=== PATIENT | female | born 1940 | race Caucasian/White ===

== ENCOUNTER 2024-02-29 12:39 | Inpatient (IN) | payer MEDICARE, OTHER ==
[~2024-02-29] VITALS: Ht 170.2 cm; Wt 63.0 kg
[2024-02-29 13:06] LABS: Basophils # (auto) 0 10 ^3/uL (0-0.2); Basophils % (auto) 0.6 % (0.0-2.0); Mean Corpuscular Volume 92.4 fL (80.0-100.0); Nucleated Red Blood Cells % 0.1 %
[2024-02-29 13:08] LABS: Eosinophils # (auto) 0 10 ^3/uL (0-0.8); Eosinophils % (auto) 0.5 % (0.0-7.0); Hematocrit 17.4 % (36.0-46.0); Mean Corpuscular Hgb Conc. 32.4 g/dL (32.0-36.0); Monocytes # (auto) 0.5 10 ^3/uL (0-1.3); Monocytes % (auto) 6.6 % (0.0-12.0); Neutrophils # (auto) 6.4 10 ^3/uL (1.6-8.6); Neutrophils % (auto) 80.3 % (37.0-80.0); Platelet Count (auto) 209 10^3/uL (140-450); Red Blood Cells 1.88 10^6/uL (4.0-5.20); Red Cell Distribution Width 17.1 % (11.8-14.3)
[2024-02-29 13:11] LABS: Hemoglobin 5.6 g/dL (12.2-16.2)
[2024-02-29 13:14] LABS: Chloride 108 mmol/L (98-107); Potassium 3.9 mmol/L (3.5-5.1); Sodium 142 mmol/L (136-145)
[2024-02-29 13:15] LABS: Anion Gap 10 (5-15); Calcium 9.3 mg/dL (8.7-10.4); Carbon Dioxide 24 mmol/L (20-31)
[2024-02-29 13:20] LABS: BUN/Creatinine Ratio 14.3 (10.0-20.0); Blood Urea Nitrogen 13 mg/dL (9-23); Glucose 143 mg/dL (74-106)
[2024-02-29 13:21] LABS: Magnesium 1.8 mg/dL (1.6-2.6)
[2024-02-29] MEDS: SODIUM CHLORIDE 0.9% 500 ML IV ONE (13:33)
[2024-02-29 13:38] VITALS: PULSE 66; RESP 17; O2SAT 98
[2024-02-29 13:50] LABS: Urine Bacteria None Seen /hpf (None Seen)
[2024-02-29 13:58] LABS: Urine Blood Negative /uL (Negative); Urine Clarity Clear (Clear); Urine Color Light-Yellow (Yellow); Urine Protein, UAD Negative (Negative); Urine Specific Gravity 1.008 (1.001-1.035); Urine Urobilinogen Normal (Negative); Urine WBC <1 /hpf (0 - 5); Urine pH 7.5 (5.0-9.0)
[2024-02-29 15:30] VITALS: BP 162/52; PULSE 67; RESP 13; TEMP 97.4
[2024-02-29 15:45] VITALS: BP 175/63; PULSE 66; RESP 17; TEMP 97.1
[2024-02-29] MEDS: IOHEXOL 300 MG/ML 100ML BOTTLE IJ ONE (17:31)
[2024-02-29] MEDS: PANTOPRAZOLE 40 MG/10 ML VIAL INJ IV SCH (18:09)
[2024-02-29 19:45] VITALS: BP 140/89; PULSE 60; RESP 17; TEMP 98
[2024-02-29 19:50] VITALS: O2SAT 98
[2024-02-29 20:49] LABS: Basophils # (auto) 0 10 ^3/uL (0-0.2); Eosinophils # (auto) 0 10 ^3/uL (0-0.8); Hematocrit 22.8 % (36.0-46.0); Hemoglobin 7.5 g/dL (12.2-16.2); Monocytes # (auto) 0.7 10 ^3/uL (0-1.3); Nucleated Red Blood Cells % 0.5 %
[2024-02-29 20:51] LABS: Basophils % (auto) 0.4 % (0.0-2.0); Eosinophils % (auto) 0.5 % (0.0-7.0); Lymphocytes # (auto) 0.9 10 ^3/uL (0.4-5.4); Lymphocytes % (auto) 11.8 % (10.0-50.0); Mean Corpuscular Hemoglobin 29.9 pg (28.0-32.0); Mean Corpuscular Hgb Conc. 32.9 g/dL (32.0-36.0); Mean Corpuscular Volume 90.7 fL (80.0-100.0); Monocytes % (auto) 9.8 % (0.0-12.0); Neutrophils # (auto) 5.9 10 ^3/uL (1.6-8.6); Neutrophils % (auto) 77.5 % (37.0-80.0); Platelet Count (auto) 172 10^3/uL (140-450); Red Blood Cells 2.52 10^6/uL (4.0-5.20); Red Cell Distribution Width 16.7 % (11.8-14.3); White Blood Cell 7.6 10^3/uL (4.4-10.8)
[2024-02-29] MEDS: SODIUM CHLOR 0.9% PF (SALINE LOCK) 10ML VIAL/SYR IV SCH (21:45)
[2024-02-29] MEDS: hydrALAZINE HCL 20 MG/ML VL IV ONE (22:06)
[2024-02-29] MEDS: ONDANSETRON HCL 4 MG/2 ML VIAL IV PRN (22:13)
[2024-02-29] MEDS: MORPHINE SULFATE INJ 2 MG/ml SYRG IV PRN (22:14)
[2024-02-29] MEDS: HYDROcodone-ACET 5/325MG TAB PO PRN (23:28)
[2024-02-29] MEDS: ACETAMINOPHEN 325 MG TAB PO PRN (23:29)
[2024-02-29 23:41] LABS: Basophils # (auto) 0 10 ^3/uL (0-0.2); Basophils % (auto) 0.3 % (0.0-2.0); Eosinophils # (auto) 0.1 10 ^3/uL (0-0.8); Eosinophils % (auto) 0.7 % (0.0-7.0); Hemoglobin 7.6 g/dL (12.2-16.2); Lymphocytes # (auto) 1.4 10 ^3/uL (0.4-5.4); Lymphocytes % (auto) 14.2 % (10.0-50.0); Mean Corpuscular Hemoglobin 29.3 pg (28.0-32.0); Mean Corpuscular Hgb Conc. 31.6 g/dL (32.0-36.0); Mean Corpuscular Volume 92.8 fL (80.0-100.0); Monocytes % (auto) 10.5 % (0.0-12.0); Neutrophils # (auto) 7.2 10 ^3/uL (1.6-8.6); Neutrophils % (auto) 74.3 % (37.0-80.0); Nucleated Red Blood Cells % 0.2 %; Platelet Count (auto) 181 10^3/uL (140-450); Red Blood Cells 2.59 10^6/uL (4.0-5.20); Red Cell Distribution Width 17.6 % (11.8-14.3); White Blood Cell 9.6 10^3/uL (4.4-10.8)
[2024-03-01] MEDS: MAGNESIUM SULFATE 1GM/100ML 100 ML IV SCH (01:59)
[2024-03-01 05:31] LABS: Basophils # (auto) 0 10 ^3/uL (0-0.2); Basophils % (auto) 0.3 % (0.0-2.0); Eosinophils # (auto) 0.1 10 ^3/uL (0-0.8); Hematocrit 23.6 % (36.0-46.0); Hemoglobin 7.7 g/dL (12.2-16.2); Lymphocytes # (auto) 1.3 10 ^3/uL (0.4-5.4); Lymphocytes % (auto) 14.3 % (10.0-50.0); Mean Corpuscular Hemoglobin 29.8 pg (28.0-32.0); Mean Corpuscular Hgb Conc. 32.4 g/dL (32.0-36.0); Mean Corpuscular Volume 91.9 fL (80.0-100.0); Monocytes # (auto) 1.1 10 ^3/uL (0-1.3); Neutrophils # (auto) 6.5 10 ^3/uL (1.6-8.6); Neutrophils % (auto) 72.4 % (37.0-80.0); Nucleated Red Blood Cells % 0.5 %; Platelet Count (auto) 172 10^3/uL (140-450); Red Blood Cells 2.57 10^6/uL (4.0-5.20); Red Cell Distribution Width 17.1 % (11.8-14.3); White Blood Cell 8.9 10^3/uL (4.4-10.8)
[2024-03-01] MEDS: cloNIDine HCL 0.1 MG TAB PO ONE (05:39)
[2024-03-01 05:50] LABS: Alanine Aminotransferase 22 U/L (7-40); Albumin 4.2 g/dL (3.2-4.8); Alkaline Phosphatase 64 U/L (46-116); Anion Gap 13 (5-15); Aspartate Aminotransferase 39 U/L (13-40); BUN/Creatinine Ratio 6.7 (10.0-20.0); Blood Urea Nitrogen 5 mg/dL (9-23); Calcium 9.1 mg/dL (8.7-10.4); Carbon Dioxide 20 mmol/L (20-31); Chloride 107 mmol/L (98-107); Glucose 115 mg/dL (74-106); Potassium 2.8 mmol/L (3.5-5.1); Sodium 140 mmol/L (136-145)
[2024-03-01 05:51] LABS: Bilirubin, Total 1.5 mg/dL (0.2-1.0); Total Protein 6.7 g/dL (5.7-8.2)
[2024-03-01 11:50] LABS: Basophils # (auto) 0 10 ^3/uL (0-0.2); Eosinophils # (auto) 0.1 10 ^3/uL (0-0.8); Hematocrit 22.6 % (36.0-46.0); Hemoglobin 7.5 g/dL (12.2-16.2); Red Blood Cells 2.52 10^6/uL (4.0-5.20)
[2024-03-01 11:51] LABS: Basophils % (auto) 0.5 % (0.0-2.0); Eosinophils % (auto) 0.8 % (0.0-7.0); Lymphocytes # (auto) 0.7 10 ^3/uL (0.4-5.4); Lymphocytes % (auto) 9.3 % (10.0-50.0); Mean Corpuscular Hemoglobin 29.7 pg (28.0-32.0); Mean Corpuscular Hgb Conc. 33.2 g/dL (32.0-36.0); Mean Corpuscular Volume 89.6 fL (80.0-100.0); Monocytes # (auto) 0.7 10 ^3/uL (0-1.3); Monocytes % (auto) 8.3 % (0.0-12.0); Neutrophils # (auto) 6.5 10 ^3/uL (1.6-8.6); Neutrophils % (auto) 81.1 % (37.0-80.0); Nucleated Red Blood Cells % 0.6 %; Platelet Count (auto) 190 10^3/uL (140-450); Red Cell Distribution Width 17.2 % (11.8-14.3)
[2024-03-01] MEDS ORDERED: MORPHINE SULFATE INJ 2 MG/ml SYRG IV PRN (13:45)
[2024-03-01] MEDS ORDERED: APIX5TAB PO (17:57)
[2024-03-01] MEDS ORDERED: LOSA-534 PO (17:57)
[2024-03-01] MEDS ORDERED: OXYB5TAB14 PO (17:57)
[2024-03-01] MEDS ORDERED: METO-158 PO (17:57)
[2024-03-01] MEDS ORDERED: AMLO1TAB22 PO (17:57)
[2024-03-01] MEDS ORDERED: ROSU5TAB5 PO (17:57)
[2024-03-01] MEDS ORDERED: BACL5TAB2 PO (17:57)
[2024-03-01] MEDS ORDERED: GABA-1308 PO (17:57)
[2024-03-01] MEDS ORDERED: DULO60CA41 PO (17:57)
[2024-03-01] MEDS ORDERED: HYDR1TAB97 PO (17:57)
[2024-03-01] MEDS ORDERED: AMIO200T33 PO (17:57)
[2024-03-01 19:15] VITALS: RESP 14; O2SAT 95
[2024-03-01] MEDS: POTASSIUM CHL 20 Meq TABLET PO ONE (19:47)
[2024-03-01] MEDS: POTASSIUM CHLORIDE 20 MEQ, LIDOCAINE 1% (LOCAL ANESTH.) 2 ML in SODIUM CHL 0.9% 100 ML IV ONE (19:55)
[2024-03-01] MEDS: DIGOXIN (250MCG/ML) 2 ML AMPULE IV ONE (20:20)
[2024-03-01] MEDS: MORPHINE SULFATE INJ 2 MG/ml SYRG IV PRN (20:38)
[2024-03-01 21:00] VITALS: BP 103/42; PULSE 98; RESP 18; TEMP 97.9; O2SAT 97
[2024-03-01] MEDS ORDERED: METOPROLOL SUCCINATE XL 50 MG TAB PO SCH (22:00)
[2024-03-01 22:31] VITALS: BP 161/69; PULSE 76; PULSE 79; RESP 18; RESP 79; TEMP 98.6; O2SAT 99
[2024-03-01] MEDS: MAGNESIUM OXIDE 400 MG TAB PO SCH (23:09)
[2024-03-01] MEDS: METOPROLOL TARTRATE 25 MG TAB PO SCH (23:10)
[2024-03-01] MEDS ORDERED: MELA3TAB27 PO (23:30)
[2024-03-02] VITALS (8 sets, daily range): BP systolic 139–161; BP diastolic 54–75; PULSE 57–78; RESP 16–19; TEMP 97.9–99; O2SAT 91–98
[2024-03-02 07:38] LABS: Alanine Aminotransferase 21 U/L (7-40); Albumin 3.9 g/dL (3.2-4.8); Alkaline Phosphatase 61 U/L (46-116); Anion Gap 9 (5-15); Aspartate Aminotransferase 37 U/L (13-40); Bilirubin, Total 0.9 mg/dL (0.2-1.0); Calcium 9.3 mg/dL (8.7-10.4); Carbon Dioxide 23 mmol/L (20-31); Chloride 108 mmol/L (98-107); Glucose 135 mg/dL (74-106); Potassium 3.6 mmol/L (3.5-5.1); Sodium 140 mmol/L (136-145); Total Protein 6.3 g/dL (5.7-8.2)
[2024-03-02 07:46] LABS: BUN/Creatinine Ratio 7.7 (10.0-20.0); Blood Urea Nitrogen 6 mg/dL (9-23)
[2024-03-02] MEDS: DOCUSATE SOD 100 MG CAP PO PRN (09:23)
[2024-03-03] VITALS (8 sets, daily range): BP systolic 131–163; BP diastolic 41–78; PULSE 60–78; RESP 16–20; TEMP 98–98.6; O2SAT 93–97
[2024-03-03] MEDS: NITROGLYCERIN 0.4 MG SL TAB SL PRN (00:10)
[2024-03-03] MEDS: hydrALAZINE HCL 20 MG/ML VL IV ONE (01:45)
[2024-03-03 07:22] LABS: Basophils # (auto) 0 10 ^3/uL (0-0.2); Eosinophils # (auto) 0.2 10 ^3/uL (0-0.8); Nucleated Red Blood Cells % 0.1 %
[2024-03-03 07:26] LABS: Basophils % (auto) 0.2 % (0.0-2.0); Eosinophils % (auto) 2.1 % (0.0-7.0); Hematocrit 23.6 % (36.0-46.0); Lymphocytes # (auto) 0.8 10 ^3/uL (0.4-5.4); Lymphocytes % (auto) 10.2 % (10.0-50.0); Mean Corpuscular Hemoglobin 30.1 pg (28.0-32.0); Mean Corpuscular Hgb Conc. 33.7 g/dL (32.0-36.0); Mean Corpuscular Volume 89.2 fL (80.0-100.0); Monocytes # (auto) 0.8 10 ^3/uL (0-1.3); Monocytes % (auto) 9.3 % (0.0-12.0); Neutrophils # (auto) 6.5 10 ^3/uL (1.6-8.6); Neutrophils % (auto) 78.2 % (37.0-80.0); Platelet Count (auto) 224 10^3/uL (140-450); Red Blood Cells 2.64 10^6/uL (4.0-5.20); Red Cell Distribution Width 16.7 % (11.8-14.3); White Blood Cell 8.3 10^3/uL (4.4-10.8)
[2024-03-03 07:27] LABS: INR 1.09 (0.9-1.15); Partial Thromboplastin Time 29.3 SEC (24.5-34.5); Prothrombin Time 11.5 sec (9.3-11.8)
[2024-03-03 07:42] LABS: Alanine Aminotransferase 21 U/L (7-40); Alkaline Phosphatase 62 U/L (46-116); Anion Gap 8 (5-15); Blood Urea Nitrogen 6 mg/dL (9-23); Calcium 9.6 mg/dL (8.7-10.4); Carbon Dioxide 25 mmol/L (20-31); Chloride 107 mmol/L (98-107); Glucose 133 mg/dL (74-106); Potassium 3.3 mmol/L (3.5-5.1); Sodium 140 mmol/L (136-145)
[2024-03-03 07:43] LABS: Aspartate Aminotransferase 29 U/L (13-40); Bilirubin, Total 0.9 mg/dL (0.2-1.0); Total Protein 6.5 g/dL (5.7-8.2)
[2024-03-03] MEDS: HYDROcodone-ACET 10/325MG TAB PO PRN (14:56)
[2024-03-04] VITALS (9 sets, daily range): BP systolic 121–179; BP diastolic 51–73; PULSE 61–126; RESP 14–18; TEMP 97.7–98.8; O2SAT 93–100
[2024-03-04] MEDS: hydrALAZINE HCL 20 MG/ML VL IV PRN (02:33)
[2024-03-04 05:15] LABS: Basophils # (auto) 0 10 ^3/uL (0-0.2); Eosinophils # (auto) 0.3 10 ^3/uL (0-0.8); Hemoglobin 7.6 g/dL (12.2-16.2); Monocytes # (auto) 0.9 10 ^3/uL (0-1.3)
[2024-03-04 05:18] LABS: Basophils % (auto) 0.6 % (0.0-2.0); Eosinophils % (auto) 3.6 % (0.0-7.0); Hematocrit 23.2 % (36.0-46.0); Lymphocytes # (auto) 1.2 10 ^3/uL (0.4-5.4); Lymphocytes % (auto) 15.3 % (10.0-50.0); Mean Corpuscular Hemoglobin 29.7 pg (28.0-32.0); Mean Corpuscular Hgb Conc. 32.9 g/dL (32.0-36.0); Monocytes % (auto) 11.9 % (0.0-12.0); Neutrophils # (auto) 5.3 10 ^3/uL (1.6-8.6); Neutrophils % (auto) 68.6 % (37.0-80.0); Nucleated Red Blood Cells % 0.2 %; Platelet Count (auto) 242 10^3/uL (140-450); Red Blood Cells 2.57 10^6/uL (4.0-5.20); Red Cell Distribution Width 16.5 % (11.8-14.3); White Blood Cell 7.8 10^3/uL (4.4-10.8)
[2024-03-04 05:34] LABS: Alanine Aminotransferase 22 U/L (7-40); Alkaline Phosphatase 62 U/L (46-116); Anion Gap 9 (5-15); Blood Urea Nitrogen 6 mg/dL (9-23); Calcium 9.4 mg/dL (8.7-10.4); Carbon Dioxide 25 mmol/L (20-31); Chloride 106 mmol/L (98-107); Glucose 143 mg/dL (74-106); Potassium 3.2 mmol/L (3.5-5.1); Sodium 140 mmol/L (136-145)
[2024-03-04 05:35] LABS: Albumin 3.9 g/dL (3.2-4.8); Aspartate Aminotransferase 24 U/L (13-40); Bilirubin, Total 0.7 mg/dL (0.2-1.0); Total Protein 6.5 g/dL (5.7-8.2)
[2024-03-04] MEDS ORDERED: MIDAZOLAM HCL 2MG/2ML 2ml VIAL (1mg/ml) ONE (12:03)
[2024-03-04] MEDS ORDERED: KETAMINE 50mg/ML 1ml syringe ONE (12:03)
[2024-03-04] MEDS ORDERED: ONDANSETRON HCL 4 MG/2 ML VIAL ONE (12:04)
[2024-03-04] MEDS ORDERED: PROPOFOL 10 MG/ML 20 ML IV ONE (12:04)
[2024-03-04] MEDS ORDERED: GLYCOPYRROLATE 0.2 MG/ML 1ML VIAL ONE (12:04)
[2024-03-04] MEDS ORDERED: fentaNYL CITRATE 100 MCG/2 ML VL ONE (12:19)
[2024-03-04] MEDS: MORPHINE SULFATE INJ 2 MG/ml SYRG IV PRN (13:06)
[2024-03-04] MEDS: fentaNYL CITRATE 100 MCG/2 ML VL IV ONE (13:16)
[2024-03-04] MEDS ORDERED: EPINEPHrine HCL 1 MG/1 ML AMP ONE (13:43)
[2024-03-04] MEDS ORDERED: LIDOCAINE 1% (LOCAL ANESTH.) PF 5ml SDV ONE (13:44)
[2024-03-04] MEDS: POTASSIUM CHL 20 Meq TABLET PO ONE (14:39)
[2024-03-04] MEDS: BUPIVACAINE 0.25% INJ 50ML VIAL ONE ×2 (17:04→17:06)
[2024-03-04] MEDS: ceFAZolin 2 GM/D5W100ml 100 ML IV ONE (17:04)
[2024-03-04] MEDS: ONDANSETRON HCL 4 MG/2 ML VIAL IV ONE (17:04)
[2024-03-04] MEDS: HEPARIN SODIUM (PORCINE) 5000 UNITS/ML 1ML VIAL ONE (17:04)
[2024-03-04] MEDS: MORPHINE SULFATE INJ 2 MG/ml SYRG ONE (17:05)
[2024-03-04] MEDS: fentaNYL CITRATE 100 MCG/2 ML VL ONE (17:05)
[2024-03-04] MEDS: BUPIVACAINE HCL 50 ML ONE (17:06)
[2024-03-04] MEDS: DexAMETHasone SOD PHOS 4 MG/1ML SDV INJ ONE (17:06)
[2024-03-05] VITALS (8 sets, daily range): BP systolic 136–179; BP diastolic 42–67; PULSE 61–69; RESP 16–18; TEMP 97.9–98.6; O2SAT 0–98
[2024-03-05 06:46] LABS: Alanine Aminotransferase 18 U/L (7-40); Alkaline Phosphatase 61 U/L (46-116); Anion Gap 4 (5-15); BUN/Creatinine Ratio 12.3 (10.0-20.0); Blood Urea Nitrogen 10 mg/dL (9-23); Calcium 9.6 mg/dL (8.7-10.4); Carbon Dioxide 24 mmol/L (20-31); Chloride 108 mmol/L (98-107); Glucose 154 mg/dL (74-106); Potassium 4.6 mmol/L (3.5-5.1); Sodium 136 mmol/L (136-145)
[2024-03-05 06:47] LABS: Albumin 4.2 g/dL (3.2-4.8); Aspartate Aminotransferase 17 U/L (13-40); Basophils # (auto) 0 10 ^3/uL (0-0.2); Basophils % (auto) 0.1 % (0.0-2.0); Eosinophils # (auto) 0 10 ^3/uL (0-0.8); Lymphocytes # (auto) 0.5 10 ^3/uL (0.4-5.4); Monocytes # (auto) 0.4 10 ^3/uL (0-1.3)
[2024-03-05 06:48] LABS: Bilirubin, Total 0.6 mg/dL (0.2-1.0); Total Protein 6.7 g/dL (5.7-8.2)
[2024-03-05 06:51] LABS: Hematocrit 23.7 % (36.0-46.0); Hemoglobin 7.8 g/dL (12.2-16.2); Mean Corpuscular Hemoglobin 29.7 pg (28.0-32.0); Monocytes % (auto) 5.2 % (0.0-12.0); Neutrophils % (auto) 88.7 % (37.0-80.0); Nucleated Red Blood Cells % 0.2 %; Platelet Count (auto) 281 10^3/uL (140-450); Red Blood Cells 2.64 10^6/uL (4.0-5.20); Red Cell Distribution Width 17.4 % (11.8-14.3); White Blood Cell 7.9 10^3/uL (4.4-10.8)
[2024-03-06 05:00] VITALS: BP 163/57; PULSE 65; RESP 17; TEMP 97.8; O2SAT 96
[2024-03-06 07:00] LABS: Basophils # (auto) 0 10 ^3/uL (0-0.2); Eosinophils # (auto) 0.1 10 ^3/uL (0-0.8); Lymphocytes # (auto) 1.4 10 ^3/uL (0.4-5.4); Monocytes # (auto) 0.6 10 ^3/uL (0-1.3); Neutrophils # (auto) 6.8 10 ^3/uL (1.6-8.6); Nucleated Red Blood Cells % 0.3 %
[2024-03-06 07:03] LABS: Basophils % (auto) 0.2 % (0.0-2.0); Eosinophils % (auto) 1.4 % (0.0-7.0); Hematocrit 26.1 % (36.0-46.0); Hemoglobin 8.5 g/dL (12.2-16.2); Lymphocytes % (auto) 15.4 % (10.0-50.0); Mean Corpuscular Hemoglobin 29.6 pg (28.0-32.0); Mean Corpuscular Hgb Conc. 32.3 g/dL (32.0-36.0); Mean Corpuscular Volume 91.6 fL (80.0-100.0); Monocytes % (auto) 6.3 % (0.0-12.0); Neutrophils % (auto) 76.7 % (37.0-80.0); Platelet Count (auto) 292 10^3/uL (140-450); Red Blood Cells 2.85 10^6/uL (4.0-5.20); Red Cell Distribution Width 17.7 % (11.8-14.3); White Blood Cell 8.9 10^3/uL (4.4-10.8)
[2024-03-06 08:00] VITALS: PULSE 129
[2024-03-06 09:00] VITALS: BP 127/66; PULSE 108; RESP 16; TEMP 97.7; O2SAT 94
[2024-03-06 11:22] LABS: Alanine Aminotransferase 18 U/L (7-40); Alkaline Phosphatase 63 U/L (46-116); Anion Gap 7 (5-15); Aspartate Aminotransferase 22 U/L (13-40); BUN/Creatinine Ratio 11.3 (10.0-20.0); Blood Urea Nitrogen 8 mg/dL (9-23); Calcium 9.5 mg/dL (8.7-10.4); Carbon Dioxide 24 mmol/L (20-31); Chloride 108 mmol/L (98-107); Glucose 120 mg/dL (74-106); Magnesium 2.2 mg/dL (1.6-2.6); Sodium 139 mmol/L (136-145)
[2024-03-06 11:23] LABS: Bilirubin, Total 0.5 mg/dL (0.2-1.0); Total Protein 6.7 g/dL (5.7-8.2)
[2024-03-06 13:00] VITALS: BP 149/47; PULSE 69; RESP 16; TEMP 97.6; O2SAT 99
[2024-03-06 17:00] VITALS: BP 149/43; PULSE 63; RESP 16; TEMP 98.4; O2SAT 97
[2024-03-06 21:00] VITALS: BP 165/56; PULSE 68; RESP 18; TEMP 97.9; O2SAT 96
[2024-03-06] MEDS: LACTULOSE 20Gm/30ML SOLN PO SCH (21:47)
[2024-03-07] VITALS (8 sets, daily range): BP systolic 155–180; BP diastolic 57–69; PULSE 57–81; RESP 17–18; TEMP 97.8–98.2; O2SAT 94–97
[2024-03-08 01:00] VITALS: BP 148/53; PULSE 67; RESP 18; TEMP 98.1; O2SAT 97
[2024-03-08 05:00] VITALS: BP 139/34; PULSE 73; RESP 18; TEMP 98.1; O2SAT 98
[2024-03-08 08:00] VITALS: PULSE 58; PULSE 77
[2024-03-08 08:58] VITALS: BP 158/68; PULSE 77; RESP 16; TEMP 97.8; O2SAT 96
[2024-03-08 13:00] VITALS: BP 170/58; PULSE 64; RESP 16; TEMP 97.6; O2SAT 98
[2024-03-08] MEDS ORDERED: SENN-58 PO (14:19)
[2024-03-08] MEDS ORDERED: DOCU-94 PO (14:19)
== END 2024-03-08 15:00 | disposition home health service (06) | DRG 605 ==
LOC: EDBD 12:39 → ER 12:48 → OVERFLOW 17:13 → TELE 03-01 00:21 → TELE-WESTW 03-01 21:03
PROVIDERS: ADMIT Internal Medicine; ATTEND Internal Medicine
PROC: 30233N1 Transfusion of Nonautologous Red Blood Cells into Peripheral Vein, Percutaneous Approach (ICD-10-PCS; principal; 2024-02-29)
PROC: 0X9D0ZZ Drainage of Right Lower Arm, Open Approach (ICD-10-PCS; 2024-03-04)
PROC: 0HCDXZZ Extirpation of Matter from Right Lower Arm Skin, External Approach (ICD-10-PCS; 2024-03-04)
DX: S50.11XA Contusion of right forearm, initial encounter (principal); I48.0 Paroxysmal atrial fibrillation; D64.9 Anemia, unspecified; E11.9 Type 2 diabetes mellitus without complications; R09.02 Hypoxemia; E78.5 Hyperlipidemia, unspecified; I10 Essential (primary) hypertension; G89.29 Other chronic pain; W18.39XA Other fall on same level, initial encounter; Z90.710 Acquired absence of both cervix and uterus; Z88.5 Allergy status to narcotic agent; Z79.01 Long term (current) use of anticoagulants; Z90.49 Acquired absence of other specified parts of digestive tract; Y93.89 Activity, other specified; Y92.89 Other specified places as the place of occurrence of the external cause; Y99.8 Other external cause status; Z82.49 Family history of ischemic heart disease and other diseases of the circulatory system; Z80.1 Family history of malignant neoplasm of trachea, bronchus and lung; Z88.8 Allergy status to other drugs, medicaments and biological substances; Z79.899 Other long term (current) drug therapy
CPT/HCPCS: 36415; 71045; 73206; 80048; 80053; 81001; 83735; 84439; 84443; 84484; 85025; 85610; 85730; 86850; 86900; 86901; 86920; 93005; 97110; 97116; 97163; 97530; 99291; G0378; J0171; J1100; J2003; J2250; J2405; J2470; J2704; J3490